=== PATIENT | male | born 1980 | race African-American/Black ===

== ENCOUNTER 2016-04-01 05:08 | Emergency (ER) | payer MEDICAID ==
[~2016-04-01 05:08] MED LIST: NAPR500 PO; ROBA750T3 PO
[2016-04-01 05:13] VITALS: BP 138/83; PULSE 59; RESP 16; TEMP 98.1; O2SAT 100
[2016-04-01] MEDS ORDERED: IBUP800T23 PO (05:22)
[2016-04-01] MEDS ORDERED: MAGICADU2 SWISH-SPIT (05:22)
[2016-04-01] MEDS ORDERED: PENI500T PO (05:22)
[2016-04-01] MEDS ORDERED: PERI0.126 SWISH-SPIT (05:22)
--- NOTE | 2016-04-01 05:27 | PD ---
HPI Chief Complaint: Oral / Dental Pain or Problem Time Seen by Provider: 05:15 Travel History International Travel<30 days: No Contact w/Intl Traveler<30days: No Traveled to known affect area: No History of Present Illness HPI This is a 35-year-old male who presents for evaluation of dental pain. He reports over the past few months he has had a tooth, the left maxillary lateral incisor, slowly chip away secondary to decay. He reports that for the past 2 days he has had a throbbing sensation in the gumline surrounding this tooth. Pain is worse with chewing. He has been trying to use over the counter daily powder for pain relief but symptoms persisted which prompted evaluation. He has not yet followed up with a dentist for evaluation of this issue. He has no other complaints at this time. [facility] Past Medical History Asthma: Yes Diminished Hearing: No Genitourinary: Yes (HAS HAD GONNERHEA BEFORE SO KNOWS WHAT IT LOOKS LIKE) Immunizations Current: No Past Surgical History Abdominal Surgery: Yes (HERNIA CHILD) Social History Alcohol Use: No Tobacco Use: No Substance Use: No Allergies-Medications (Allergen,Severity, Reaction): Coded Allergies: No Known Allergies (Verified , 04/01/16) Reported Meds & Prescriptions Reported Meds & Active Scripts Active Naprosyn (Naproxen) 500 Mg Tab 500 Mg PO BID PRN Robaxin-750 (Methocarbamol) 750 Mg Tab 750 Mg PO TID 5 Days Review of Systems General / Constitutional: No: Fever, Chills HENT: Positive: Dental Difficulties Physical Exam Narrative GENERAL: Well-developed well-nourished male in no acute distress SKIN: Warm and dry. HEAD: Atraumatic. Normocephalic. EYES: Pupils equal and round. No scleral icterus. No injection or drainage. ENT: No nasal bleeding or discharge. Mucous membranes pink and moist. The left maxillary lateral incisor is decayed to the root. The surrounding gumline is tender to palpation and mildly erythematous. There is no gingival edema or fluctuance or drainage. There is no trismus. No facial edema. NECK: Trachea midline. No JVD. There is no lymphadenopathy, no submandibular edema. CARDIOVASCULAR: Regular rate and rhythm. No murmur appreciated. RESPIRATORY: No accessory muscle use. Clear to auscultation. Breath sounds equal bilaterally. Data Data Last Documented VS Vital Signs Date Time Temp Pulse Resp B/P Pulse Ox O2 Delivery O2 Flow Rate FiO2 04/01/16 05:13 98.1 59 16 138/83 100 Room Air MDM Medical Decision Making Medical Screen Exam Complete: Yes Emergency Medical Condition: Yes Medical Record Reviewed: Yes Differential Diagnosis Dental caries, pulpitis, pericoronitis, periodontal abscess, gingivitis, acute necrotizing ulcerative gingivitis, osteomyelitis Narrative Course 35-year-old male who has had dental pain for the past 2 days. On examination his pain is localized to the left maxillary lateral incisor which is quite decayed as well as the surrounding gumline which is mildly erythematous. Plan is to treat the patient with penicillin, peridex ssp, pain medication and have him follow-up with a dentist for definitive therapy. Diagnosis Primary Impression: Dental caries Referrals: Dentist Additional Instructions: Medication as prescribed. Follow up with a dentist for definitive therapy. Return for any emergent medical conditions. Med/Other Pt SpecificInfo: Prescription(s) given Scripts Ibuprofen 800 Mg Juj392 Mg PO Q6HR PRN (PAIN) 7 Days Ref 0 Prov:Yamileth Rivera DO 04/01/16 Chlorhexidine Gluconate (Mouth) Liq (Peridex Liq)0.12% Soln15 Ml SWISH-SPIT BID #473 ML Ref 0 Prov:Yamileth Rivera DO 04/01/16 Chugxuls-Eqqrpvcwracgexy-Hicrxlnyq Liq (Magic Mouthwash Adult Liq)120 Ml Susp5 Ml SWISH-SPIT ACHS #120 ML Ref 0 Each 5 mL contains: Nystatin 200,000 units, Diphenhydramine 4.25 mg, Viscous Lidocaine 10 mg, Rodrigez syrup 0.8 mL Prov:Yamileth Rivera DO 04/01/16 Penicillin V Potassium 500 Mg Zrn220 Mg PO Q8H 7 Days Ref 0 Prov:Yamileth Rivera DO 04/01/16 Disposition: 01 DISCHARGE HOME Condition: Stable Zeeshan Fuller Apr 01, 2016 05:27
== END 2016-04-01 05:48 | disposition home or self-care (01) ==
LOC: NEPB 05:08
DX: K02.9 Dental caries, unspecified (principal)
CPT/HCPCS: 99282

== ENCOUNTER 2016-04-09 17:49 | Emergency (ER) | payer MEDICAID, OTHER ==
[~2016-04-09] VITALS: Ht 182.9 cm; Wt 130.0 kg
[2016-04-09 17:53] VITALS: BP 124/58; PULSE 76; RESP 14; TEMP 98.3; O2SAT 97
[2016-04-09] MEDS ORDERED: ALBUAER3 INH (18:53)
[2016-04-09] MEDS ORDERED: MOME17I EACH NARE (18:53)
[2016-04-09] MEDS ORDERED: BENZ100 PO (18:53)
--- NOTE | 2016-04-09 18:54 | PD ---
HPI Chief Complaint: Cold / Flu Symptoms Time Seen by Provider: 18:52 Travel History International Travel<30 days: No Contact w/Intl Traveler<30days: No Traveled to known affect area: No History of Present Illness HPI 35-year-old male presents to the emergency Department with complaint of dry cough and runny nose for the last 3-4 days. Denies throat pain, ear pain. Denies fever, chills, nausea, vomiting. Has history of asthma and has been using an inhaler with no relief of symptoms. Last used her inhaler earlier today. He doesn't know what kind of inhaler it is and is not prescribed to him. He denies wheezing. Denies chest pain, shortness of breath. Denies chest tightness. No one else is sick like him. Has not used any other medications or tried any other treatments to alleviate symptoms. No known aggravating or relieving factors. No other modifying factors or associated signs and symptoms. PFSH Past Medical History Asthma: Yes Diminished Hearing: No Genitourinary: Yes (HAS HAD GONNERHEA BEFORE SO KNOWS WHAT IT LOOKS LIKE) Immunizations Current: No Tetanus Vaccination: > 5 Years Past Surgical History Abdominal Surgery: Yes (HERNIA CHILD) Social History Alcohol Use: No Tobacco Use: No Substance Use: No Allergies-Medications (Allergen,Severity, Reaction): Coded Allergies: No Known Allergies (Verified , 04/09/16) Reported Meds & Prescriptions Reported Meds & Active Scripts Active Deltasone (Prednisone) 20 Mg Tab 40 Mg PO DAILY 5 Days Nasonex Nasal [place] (Mometasone Furoate) 50 Mcg/Act Naspr 2 [place] EACH NARE DAILY PRN Tessalon Perles (Benzonatate) 100 Mg Cap 100 Mg PO TID PRN Proair Hfa 8.5 GM Inh (Albuterol Sulfate) 90 Mcg/Act Aer 2 Puff INH Q4-6H PRN 108 mcg/actuation Review of Systems Except as stated in HPI: all other systems reviewed are Neg Physical Exam Narrative GENERAL: Well-nourished, well-developed male patient, in no acute distress SKIN: Warm and dry. No rash. HEAD: Atraumatic. Normocephalic. EYES: Pupils equal and round at 3 mm with brisk reaction. No scleral icterus. No injection or drainage. PERRLA. ENT: Mucosa pink and moist. No erythema or exudates. No uvular edema. No uvular , palatal, or tonsillar deviation. Airway patent. EARS: Bilateral pinnae and external canals appear within normal limits. Bilateral tympanic membranes without erythema, dullness or perforation. NECK: Trachea midline. No lymphadenopathy. CARDIOVASCULAR: Regular rate and rhythm. No murmur appreciated. RESPIRATORY: No accessory muscle use. Clear to auscultation. Breath sounds equal bilaterally. Consistent dry cough. GASTROINTESTINAL: Rounded. MUSCULOSKELETAL: No obvious deformities. No clubbing. No cyanosis. No edema. NEUROLOGICAL: Awake and alert. Oriented 3. No obvious cranial nerve deficits. Motor grossly within normal limits. Normal speech. Moves all extremities. 5/5 strength to all extremities. PSYCHIATRIC: Appropriate mood and affect; insight and judgment normal. Data Data Last Documented VS Vital Signs Date Time Temp Pulse Resp B/P Pulse Ox O2 Delivery O2 Flow Rate FiO2 04/09/16 17:53 98.3 76 14 124/58 97 Room Air Orders Albuterol-Ipratropium Neb (Duoneb Neb) (04/09/16 19:00) [facility] Medical Decision Making Medical Screen Exam Complete: Yes Emergency Medical Condition: Yes Medical Record Reviewed: Yes Differential Diagnosis Bronchitis, asthma exacerbation, viral illness Narrative Course 35-year-old male physical exam consistent with a viral illness and possible asthma exacerbation. The patient has been using an inhaler at home that is not prescribed to him. He does have history of asthma. His lungs are clear and equal throughout. He does have a consistent dry cough during physical exam. He is in no acute distress without retractions or tachypnea. No audible wheezing. DuoNeb 1 administered in the ER. Albuterol inhaler, Deltasone, Tessalon Perles, Nasonex prescribed for home. Discussed viral illness and symptom treatment. Patient verbalized understanding and agreement with treatment plan. Patient is medically cleared and stable for discharge. Discussed reasons to return to the emergency department. Instructed patient to follow up with primary care provider. Patient agrees with treatment plan. The patients vital signs are stable and the patient is stable for outpatient follow- up and treatment. Patient discharged home, stable and in no acute distress. Diagnosis Primary Impression: Viral illness Referrals: Primary Care Physician Patient Instructions: Cold Symptoms (ED), General Instructions, Safe Use of Cough and Cold Medicines (ED) Additional Instructions: Ibuprofen or Tylenol as directed and as needed to reduce fever/ pain Get plenty of sleep/rest Drink plenty of fluids to prevent dehydration Use an air humidifier/turn off ceiling fans Follow-up with your primary care provider within 1 day Return immediately to the emergency department with worsening of symptoms Med/Other Pt SpecificInfo: Prescription(s) given Scripts Prednisone (Deltasone)20 Mg Tab40 Mg PO DAILY 5 Days Ref 0 Prov:Casandra Gatica 04/09/16 Mometasone Nasal [place] (Nasonex Nasal [place])50 Mcg/Act Naspr2 [place] EACH NARE DAILY PRN (NASAL CONGESTION) #1 BOTTLE Ref 0 Prov:Casandra Gatica 04/09/16 Benzonatate (Tessalon Perles)100 Mg Ppi412 Mg PO TID PRN (COUGH) #21 CAP Ref 0 Prov:Casandra Gatica 04/09/16 Albuterol 8.5 GM Inh (Proair Hfa 8.5 GM Inh)90 Mcg/Act Aer2 Puff INH Q4-6H PRN ( SOB/WHEEZING) #1 INHALER Ref 0 108 mcg/actuation Prov:Casandra Gatica 04/09/16 Disposition: 01 DISCHARGE HOME Condition: Stable Casandra Gatica Apr 09, 2016 18:54
[2016-04-09] MEDS ORDERED: PRED-503 PO (18:57)
[2016-04-09] MEDS ORDERED: RESP: ALBUTEROL 2.5 MG/IPRATROPIUM 0.5 MG NEB (SCH) INH ONE (19:00)
== END 2016-04-09 20:04 | disposition home or self-care (01) ==
LOC: NEPB 17:49
DX: B34.9 Viral infection, unspecified (principal)
CPT/HCPCS: 94664; 99282

== ENCOUNTER 2016-10-17 04:49 | Emergency (ER) | payer MEDICAID ==
[~2016-10-17 04:49] MED LIST changes: +ALBUAER3 INH; +BENZ100 PO; +MOME17I EACH NARE; -NAPR500 PO; +PRED-503 PO; -ROBA750T3 PO
[2016-10-17 04:51] VITALS: BP 133/89; PULSE 79; RESP 16; TEMP 99.2; O2SAT 97
[2016-10-17] MEDS ORDERED: NORC5TAB PO (05:27)
[2016-10-17] MEDS ORDERED: MEDR4PAK PO (05:27)
[2016-10-17] MEDS ORDERED: ORPH100T99 PO (05:27)
--- NOTE | 2016-10-17 05:27 | PD ---
HPI Chief Complaint: Back/ Neck Pain or Injury Time Seen by Provider: 05:21 Travel History International Travel<30 days: No Contact w/Intl Traveler<30days: No Traveled to known affect area: No History of Present Illness HPI The patient is a 36-year-old [place] male who presents emergency department for back pain. The patient states he injured his back approximately 5 years ago while moving furniture into an apartment. He then reinjured his back approximately 2 years ago on a Worker's Compensation related injury. The patient states he had conservative treatment at an urgent care and his symptoms improved. The patient now notes for the last 5 days he's had some low back pain at the right lower aspect of his back, occasionally radiates down the right leg to the right heel. The patient states the pain is positional, can be exacerbated by bending over and rotating the thorax, and is alleviated at rest. He denies any nausea, vomiting, abdominal pain, flank pain, or pain that radiates into the scrotum. He denies any hematuria, dysuria, frequency, or urgency. He denies any weakness of the right lower extremity, though occasionally feels like his foot is asleep when he stands up and this resolves quickly. PFSH Past Medical History Asthma: Yes Diminished Hearing: No Genitourinary: Yes (HAS HAD GONNERHEA BEFORE SO KNOWS WHAT IT LOOKS LIKE) Immunizations Current: No Past Surgical History Abdominal Surgery: Yes (HERNIA CHILD) Social History Alcohol Use: No Tobacco Use: No Substance Use: No Allergies-Medications (Allergen,Severity, Reaction): Coded Allergies: No Known Allergies (Verified , 04/09/16) Reported Meds & Prescriptions Reported Meds & Active Scripts Active Deltasone (Prednisone) 20 Mg Tab 40 Mg PO DAILY 5 Days Nasonex Nasal [place] (Mometasone Furoate) 50 Mcg/Act Naspr 2 [place] EACH NARE DAILY PRN Tessalon Perles (Benzonatate) 100 Mg Cap 100 Mg PO TID PRN Proair Hfa 8.5 GM Inh (Albuterol Sulfate) 90 Mcg/Act Aer 2 Puff INH Q4-6H PRN 108 mcg/actuation Review of Systems Except as stated in HPI: all other systems reviewed are Neg General / Constitutional: No: Fever Genitourinary: No: Dysuria, Hematuria, Flank Pain Musculoskeletal: Positive: Pain, No: Weakness Neurologic: Positive: Paresthesia, No: Focal Abnormalities Physical Exam Narrative GENERAL: Awake, alert, pleasant 36-year-old male who appears his stated age and is in no acute respiratory distress. SKIN: Focused skin assessment warm/dry. HEAD: Atraumatic. Normocephalic. EYES: No injection or drainage. Back: No tenderness of the mid thoracic or lumbar vertebrae. Minimal tenderness of the right sacroiliac. No tenderness of the right sciatic area. Rotation of the back with flexion of the back reproduces symptoms. MUSCULOSKELETAL: Strength of the lower extremities is 5/5 with hip extension, knee extension, plantar flexion, and dorsiflexion. NEUROLOGICAL: Awake and alert. No obvious cranial nerve deficits. Motor grossly within normal limits. Normal speech. Knee DTRs bilateral 2+ and symmetric. Sensation is intact to the medial, lateral, dorsal aspect the lower extremity bilaterally. PSYCHIATRIC: Appropriate mood and affect; insight and judgment normal. Data Data Last Documented VS Vital Signs Date Time Temp Pulse Resp B/P Pulse Ox O2 Delivery O2 Flow Rate FiO2 10/17/16 04:51 99.2 79 16 133/89 97 Room Air [facility] Medical Decision Making Medical Screen Exam Complete: Yes Emergency Medical Condition: Yes Medical Record Reviewed: Yes Differential Diagnosis Differential diagnosis includes back pain with radiculopathy, sciatica, herniated disc, spinal stenosis, lumbago, nephrolithiasis, epidural abscess, psoas abscess. Narrative Course The patient's physical examination is consistent back pain with radiculopathy. The patient denies any IVDA. The patient's symptoms are reproducible with certain movements, most likely this is an inflammatory process of the nerve from the L4/L5/S1 region. The patient will be treated with a Medrol Dosepak, Norflex, and [place] as needed for pain. He is advised to follow-up with her primary physician for referral to see physical therapy if symptoms persist. Activity as tolerated. Diagnosis Primary Impression: Back pain with right-sided radiculopathy Patient Instructions: General Instructions Additional Instructions: Medications as directed. Follow-up with your primary physician. Activity as tolerated. Apply ice and/or heat to the affected area as needed. If symptoms persist follow-up with a primary physician for referral to see a physical therapist. Med/Other Pt SpecificInfo: Prescription(s) given Scripts Hydrocodone-Acetaminophen ([place])5-325 mg Tab1 Tab PO Q6H PRN (PAIN) #12 TAB Ref 0 Prov:Casey Menchaca MD 10/17/16 Orphenadrine ER 12 HR (Orphenadrine CR)100 Mg Sot848 Mg PO Q12HR #20 TAB Ref 0 Prov:Casey Menchaca MD 10/17/16 Methylprednisolone Dosepak (Medrol Dosepak)4 Mg Dspk4 Mg PO DIRECTED #1 DSPK Ref 0 Per Pharmacist direction Prov:Casey Menchaca MD 10/17/16 Disposition: 01 DISCHARGE HOME Condition: Stable Casey Menchaca MD Oct 17, 2016 05:27
== END 2016-10-17 06:09 | disposition home or self-care (01) ==
LOC: NEPE 04:49
DX: M54.10 Radiculopathy, site unspecified (principal); J45.909 Unspecified asthma, uncomplicated; Z79.899 Other long term (current) drug therapy
CPT/HCPCS: 99284

== ENCOUNTER 2017-05-29 01:20 | Emergency (ER) | payer MEDICAID ==
[~2017-05-29] VITALS: Ht 182.9 cm; Wt 125.0 kg
[~2017-05-29 01:20] MED LIST changes: +MEDR4PAK PO; +NORC5TAB PO; +ORPH100T2 PO
[2017-05-29 01:36] VITALS: BP 126/66; PULSE 70; RESP 18; TEMP 98.6; O2SAT 98
[2017-05-29] MEDS ORDERED: MAGICADU2 SWISH-SPIT (03:30)
--- NOTE | 2017-05-29 03:32 | PD ---
HPI Chief Complaint: Cold / Flu Symptoms Time Seen by Provider: 03:26 Travel History International Travel<30 days: No Contact w/Intl Traveler<30days: No Traveled to known affect area: No History of Present Illness HPI 37-year-old male presents for evaluation of a sore throat. Symptoms started yesterday. It hurts to swallow. He endorses a slight cough as well. Denies fevers, chills, rash, ear pain. He has no other complaints at this time. PFSH Past Medical History Asthma: Yes Diminished Hearing: No Genitourinary: Yes (HX GONNERHEA) Immunizations Current: Yes Past Surgical History Abdominal Surgery: Yes (HERNIA CHILD) Social History Alcohol Use: No Tobacco Use: No Substance Use: No Allergies-Medications (Allergen,Severity, Reaction): Coded Allergies: No Known Allergies (Verified Adverse Reaction, Unknown, 05/29/17) Reported Meds & Prescriptions Reported Meds & Active Scripts Active Magic Mouthwash Adult Liq (Multi-Ingredient Mouthwash/Gargle) 120 Ml Susp 10 Ml SWISH-SPIT ACHS Each 5mL contains: Nystatin 200,000units, Diphenhydramine 4.25mg, Viscous Lidocaine 10mg, Rodrigez syrup 0.8 mL [place] (Hydrocodone-Acetaminophen) 5-325 mg Tab 1 Tab PO Q6H PRN Orphenadrine CR (Orphenadrine Citrate) 100 Mg Tab 100 Mg PO Q12HR Medrol Dosepak (Methylprednisolone) 4 Mg Dspk 4 Mg PO DIRECTED Per Pharmacist direction Deltasone (Prednisone) 20 Mg Tab 40 Mg PO DAILY 5 Days Nasonex Nasal [place] (Mometasone Furoate) 50 Mcg/Act Naspr 2 [place] EACH NARE DAILY PRN Tessalon Perles (Benzonatate) 100 Mg Cap 100 Mg PO TID PRN Proair Hfa 8.5 GM Inh (Albuterol Sulfate) 90 Mcg/Act Aer 2 Puff INH Q4-6H PRN 108 mcg/actuation Review of Systems General / Constitutional: No: Fever, Chills HENT: Positive: Sore Throat Respiratory: Positive: Cough Physical Exam Narrative GENERAL: Well-nourished male in no acute distress SKIN: Warm and dry. HEAD: Atraumatic. Normocephalic. EYES: Pupils equal and round. No scleral icterus. No injection or drainage. ENT: No nasal bleeding or discharge. Mucous membranes pink and moist. Mild oral pharyngeal erythema without exudate NECK: Trachea midline. No JVD. No lymphadenopathy. CARDIOVASCULAR: Regular rate and rhythm. No murmur appreciated. RESPIRATORY: No accessory muscle use. Clear to auscultation. Breath sounds equal bilaterally. Data Data Last Documented VS Vital Signs Date Time Temp Pulse Resp B/P (MAP) Pulse Ox O2 Delivery O2 Flow Rate FiO2 05/29/17 01:36 98.6 70 18 126/66 (86) 98 Orders Orders Group A Rapid Strep Screen (05/29/17 01:41) Strep Culture (Group A) (05/29/17 01:45) Ed Discharge Order (05/29/17 03:30) MDM Medical Decision Making Medical Screen Exam Complete: Yes Emergency Medical Condition: Yes Medical Record Reviewed: Yes Differential Diagnosis Pharyngitis, tonsillitis, peritonsillar abscess, infectious mononucleosis, herpangina Narrative Course Rapid strep screen is negative. He appears to have a viral pharyngitis. He is stable for discharge. Diagnosis Primary Impression: Pharyngitis Additional Instructions: Tylenol or Motrin for pain. Stay well-hydrated and well-nourished. Return for any emergent medical conditions. Med/Other Pt SpecificInfo: Prescription(s) given Scripts Xtmdbsnz-Ijqqoragnptbvxr-Fpowhuhzy Liq (Magic Mouthwash Adult Liq) 120 Ml Susp 10 ML SWISH-SPIT ACHS for Mouth sores, #120 ML 1 Refill Each 5mL contains: Nystatin 200,000units, Diphenhydramine 4.25mg, Viscous Lidocaine 10mg, Rodrigez syrup 0.8 mL Prov: Alexis Cesar MD 05/29/17 Disposition: 01 DISCHARGE HOME Condition: Stable Zeeshan Fuller May 29, 2017 03:32
== END 2017-05-29 03:57 | disposition home or self-care (01) ==
LOC: NEPD 01:20
DX: J02.9 Acute pharyngitis, unspecified (principal); J45.909 Unspecified asthma, uncomplicated
CPT/HCPCS: 87081; 87880; 99283